=== PATIENT | female | born 1990 | race Caucasian/White ===

== ENCOUNTER 2022-10-17 08:37 | Outpatient (CLI) | payer BC, SELFPAY ==
--- NOTE | 2022-10-17 08:45 | CRLHL7_ITS ---
For Patients: As a result of the Century Cures Act, medical imaging exams and procedure reports are released immediately into your electronic medical record. You may view this report before your referring provider. If you have questions, please contact your health care provider. INDICATION: First trimester scan, establish dates. COMPARISON: None. TECHNIQUE: Real-time sanon-scale imaging of the pelvis was performed. FINDINGS: Sonographic imaging demonstrates a single living intrauterine gestation. The embryo demonstrates a regular cardiac rate measuring 161 beats per minute. The embryo`s crown-rump length measurement of 2.3 cm corresponds to a gestational age of 9 weeks 0 days with a sonographic due date of 05/22/2023. There is a normal-appearing yolk sac. There are no gross abnormalities noted within the embryo at this early state of development. The gestational sac has a normal appearance. There is no evidence of a perigestational hemorrhage. The amount of fluid within the sac appears appropriate for gestational age. The cervix is closed. The myometrium appears normal. Left ovary not visualized. Corpus luteal cyst right ovary there are no suspicious fluid collections noted in the cul-de-sac. IMPRESSION: Normal first trimester OB ultrasound exam. Gestational age calculated at 9 weeks 0 days with a sonographic due date of 05/22/2023. Dictated by Osman Santos MD @ 10/17/2022 10:35:27 AM (Electronically Signed)
== END 2022-10-17 08:38 | disposition home or self-care (01) ==
LOC: US 08:38
PROVIDERS: PCP Family Medicine; Visit Provider Obstetrics & Gynecology
DX: Z34.91 Encounter for supervision of normal pregnancy, unspecified, first trimester (principal); Z3A.09 9 weeks gestation of pregnancy
CPT/HCPCS: 76817; 84439; 84443; 86703; 86803; 86850; 86900; 86901; 87086; 87340

== ENCOUNTER 2022-10-17 09:59 | Outpatient (CLI) | payer BC, SELFPAY ==
[2022-10-17 13:10] LABS: Hepatitis B Surface Antigen* Negative (Negative)
[2022-10-17 13:19] LABS: HIV 1/2/P24 Combo Screen* Negative (Negative)
[2022-10-17 13:28] LABS: Hepatitis C Virus Antibody* Negative (Negative)
[2022-10-17 18:34] LABS: TSH With Reflex to FT4* 0.087 uIU/mL (0.270-4.200)
[2022-10-17 19:49] LABS: Free T4 Free Thyroxine* 1.13 ng/dL (0.70-1.85)
[2022-10-18 22:56] LABS: Rapid Plasma Reagin (RPR) Non Reactive (Non Reactive)
[2022-10-19 00:27] LABS: Varicella-Zoster Virus Ab, IgG 146.9 IV
[2022-10-19 00:29] LABS: Rubella Antibody IgG 27.7 IU/mL
== END 2022-10-17 10:00 | disposition home or self-care (01) ==
PROVIDERS: Advanced Practice Midwife; PCP Family Medicine; Visit Provider Advanced Practice Midwife
DX: Z34.91 Encounter for supervision of normal pregnancy, unspecified, first trimester (principal); Z83.49 Family history of other endocrine, nutritional and metabolic diseases
CPT/HCPCS: 84439; 84443; 86592; 86703; 86762; 86787; 86803; 86850; 86900; 86901; 87086; 87340; 87491; 87591

== ENCOUNTER 2023-01-04 12:26 | Outpatient (CLI) | payer BC, SELFPAY | END 2023-01-04 12:27 | disposition home or self-care (01) | LOC: US 12:27 | PROVIDERS: PCP Family Medicine; Visit Provider Pediatrics Neonatal-Perinatal Medicine | DX: O09.522 Supervision of elderly multigravida, second trimester (principal); Z3A.19 19 weeks gestation of pregnancy | CPT/HCPCS: 76811 ==

== ENCOUNTER 2023-03-01 10:22 | Outpatient (CLI) | payer BC, SELFPAY | END 2023-03-01 10:23 | disposition home or self-care (01) | LOC: NFLDREF 03-02 00:40 | PROVIDERS: PCP Family Medicine; Referring Provider Family Medicine; Visit Provider Obstetrics & Gynecology | DX: O99.282 Endocrine, nutritional and metabolic diseases complicating pregnancy, second trimester (principal); Z3A.27 27 weeks gestation of pregnancy | CPT/HCPCS: 84443; 86592 ==

== ENCOUNTER 2023-04-12 10:10 | Outpatient (CLI) | payer BC, SELFPAY | END 2023-04-12 10:11 | disposition home or self-care (01) | LOC: NFLDREF 04-14 05:30 | PROVIDERS: PCP Family Medicine; Referring Provider Family Medicine; Visit Provider Obstetrics & Gynecology | DX: O09.523 Supervision of elderly multigravida, third trimester (principal); Z3A.33 33 weeks gestation of pregnancy | CPT/HCPCS: 80175 ==

== ENCOUNTER 2023-04-25 10:15 | Outpatient (CLI) | payer BC, SELFPAY | END 2023-04-25 10:16 | disposition home or self-care (01) | LOC: NFLDREF 04-26 17:01 | PROVIDERS: PCP Family Medicine; Referring Provider Family Medicine; Visit Provider Obstetrics & Gynecology | DX: O36.8330 Maternal care for abnormalities of the fetal heart rate or rhythm, third trimester, not applicable or unspecified (principal); Z3A.35 35 weeks gestation of pregnancy | CPT/HCPCS: 87081; 87653 ==

== ENCOUNTER 2023-08-03 15:46 | Outpatient (CLI) | payer BC, SELFPAY | END 2023-08-03 15:47 | disposition home or self-care (01) | LOC: NFLDREF 08-11 07:11 | PROVIDERS: PCP Family Medicine; Referring Provider Family Medicine; Visit Provider Advanced Practice Midwife | DX: E07.9 Disorder of thyroid, unspecified (principal) | CPT/HCPCS: 84443 ==

== ENCOUNTER 2023-10-16 15:00 | Outpatient (RCR) | payer BC, MEDICAID, SELFPAY | END 2024-02-13 23:59 | disposition home or self-care (01) | PROVIDERS: PCP Family Medicine; Visit Provider Advanced Practice Midwife | DX: Z39.2 Encounter for routine postpartum follow-up (principal); L90.5 Scar conditions and fibrosis of skin; R52 Pain, unspecified; R53.1 Weakness; Z51.89 Encounter for other specified aftercare | CPT/HCPCS: 97110; 97140; 97162; 97535 ==

== ENCOUNTER 2024-07-22 14:59 | Outpatient (CLI) | payer BC, SELFPAY ==
[2024-07-24 20:29] LABS: HPV Source Cervical; HPV, High Risk by TMA Not Detected
== END 2024-07-22 15:00 | disposition home or self-care (01) ==
PROVIDERS: PCP Family Medicine; Visit Provider Obstetrics & Gynecology
DX: Z01.419 Encounter for gynecological examination (general) (routine) without abnormal findings (principal); Z12.4 Encounter for screening for malignant neoplasm of cervix; Z13.6 Encounter for screening for cardiovascular disorders; Z13.1 Encounter for screening for diabetes mellitus; Z11.51 Encounter for screening for human papillomavirus (HPV)
CPT/HCPCS: 87624; 87625; 88141; 88142

== ENCOUNTER 2024-07-24 08:47 | Outpatient (CLI) | payer BC, SELFPAY | END 2024-07-24 08:48 | disposition home or self-care (01) | LOC: NFLDREF 07-25 08:37 | PROVIDERS: PCP Family Medicine; Referring Provider Family Medicine; Visit Provider Obstetrics & Gynecology | DX: Z13.6 Encounter for screening for cardiovascular disorders (principal); Z13.1 Encounter for screening for diabetes mellitus | CPT/HCPCS: 80061; 82947 ==

== ENCOUNTER 2024-07-25 13:46 | Outpatient (CLI) | payer BC, SELFPAY ==
--- NOTE | 2024-07-25 14:00 | CRLHL7_ITS ---
For Patients: As a result of the Century Cures Act, medical imaging exams and procedure reports are released immediately into your electronic medical record. You may view this report before your referring provider. If you have questions, please contact your health care provider. CLINICAL HISTORY: Lost IUD strings TECHNIQUE: 2D sanon scale and color Doppler images were acquired of the pelvis using a transvaginal approach. FINDINGS: On transvaginal imaging, the myometrium has a normal uniform echotexture. The uterus measures 7.5 x 3.3 x 5.2 cm. Normal position of an IUD within the endometrial canal. The left ovary is not visualized and the right ovary measures 3.6 x 1.4 x 1.7 cm. The right ovary demonstrates normal arterial and venous blood flow on color Doppler analysis. There are no suspicious fluid collections within the cul-de-sac. IMPRESSION: Normal position of an IUD within the endometrial canal. Dictated by Osman Santos MD @ 07/26/2024 10:15:41 AM (Electronically Signed)
== END 2024-07-25 13:47 | disposition home or self-care (01) ==
LOC: US 13:47
PROVIDERS: PCP Family Medicine; Visit Provider Obstetrics & Gynecology
DX: T83.32XA Displacement of intrauterine contraceptive device, initial encounter (principal)
CPT/HCPCS: 76830